=== PATIENT | male | born 1960 | race African-American/Black ===

== ENCOUNTER 2017-10-19 14:05 | Day surgery (SDC) | payer MEDICARE ==
[2017-10-19] MEDS ORDERED: DEXAMETHASONE IVP SCH (14:30)
[2017-10-19] MEDS ORDERED: SODIUM CHLORIDE 0.9% IVP SCH (14:30)
[2017-10-19] MEDS ORDERED: ONDANSETRON IVP SCH (14:30)
[2017-10-19] MEDS ORDERED: DEXTROSE 5% IV SCH ×2 (14:45)
[2017-10-19] MEDS ORDERED: WATER IVPB SCH ×2 (14:45)
[2017-10-19] MEDS ORDERED: CARFILZOMIB IV SCH ×2 (14:45)
[2017-10-19] MEDS ORDERED: WATER IV SCH ×2 (14:45)
[2017-10-19] MEDS ORDERED: CARFILZOMIB IVPB SCH ×2 (14:45)
[2017-10-19] MEDS ORDERED: Admixture Fee 1 EACH in Dextrose 5% in Water 10 ML FS SCH ×2 (14:45)
[2017-10-19] MEDS ORDERED: DEXTROSE 5% IVPB SCH ×2 (14:45)
[2017-10-19 15:28] VITALS: BP 164/84; TEMP 98.2
== END 2017-10-19 16:17 | disposition home or self-care (01) ==
LOC: ONC/OP 14:05
PROVIDERS: ATTEND Internal Medicine Hematology & Oncology
DX: Z51.11 Encounter for antineoplastic chemotherapy (principal); C90.01 Multiple myeloma in remission; I10 Essential (primary) hypertension; E11.42 Type 2 diabetes mellitus with diabetic polyneuropathy; Z88.2 Allergy status to sulfonamides; Z79.899 Other long term (current) drug therapy; Z87.891 Personal history of nicotine dependence
CPT/HCPCS: 96367; 96413; J1100; J2405; J7050; J7070; J9047

== ENCOUNTER 2017-10-20 13:54 | Day surgery (SDC) | payer MEDICARE ==
[2017-10-20] MEDS ORDERED: Admixture Fee 1 EACH in Dextrose 5% in Water 10 ML FS SCH ×2 (14:30)
[2017-10-20] MEDS ORDERED: WATER IV SCH ×2 (14:30)
[2017-10-20] MEDS ORDERED: DEXTROSE 5% IV SCH ×2 (14:30)
[2017-10-20] MEDS ORDERED: CARFILZOMIB IV SCH ×2 (14:30)
[2017-10-20] MEDS ORDERED: Ondansetron 2MG/ML MDV 10 MG in Sodium Chloride 0.9% 50 ML IVP SCH (14:30)
[2017-10-20 16:03] VITALS: BP 161/77; TEMP 98.3
== END 2017-10-20 16:08 | disposition home or self-care (01) ==
LOC: ONC/OP 13:54
PROVIDERS: ATTEND Internal Medicine Hematology & Oncology
DX: Z51.11 Encounter for antineoplastic chemotherapy (principal); C90.01 Multiple myeloma in remission; Z88.2 Allergy status to sulfonamides
CPT/HCPCS: 96367; 96413; J2405; J7050; J7070; J9047

== ENCOUNTER 2017-10-26 13:08 | Day surgery (SDC) | payer MEDICARE ==
[2017-10-26 13:44] VITALS: BP 173/77; TEMP 98.1
[2017-10-26 14:00] LABS: #Lymphocytes 1.9 thou/uL (1.20-3.40); #Monocytes 0.4 thou/uL (0.11-0.59); #Neutrophils 2.6 thou/uL (1.40-6.50); %Basophils 0.3 % (0.0-1.0); %Eosinophils 0.9 % (0.0-10.0); %Lymphocytes 38.6 % (21.0-51.0); %Monocytes 7.2 % (0.0-10.0); Hemoglobin 10.8 g/dL (14.0-18.0); Mean Corpuscular HGB CONC 32.5 g/dL (32.0-36.0); Mean Corpuscular Hemoglobin 30.7 pg (27.0-31.0); Mean Corpuscular Volume 94.4 fl (80.0-94.0); Mean Platelet Volume 10.8 fL (7.4-10.4); Platelet Count 124 thou/uL (130-400); RBC Distribution Width 17.9 % (11.5-14.5); Red Blood Cell (RBC) Count 3.53 mill/uL (4.70-6.10); White Blood Cell (WBC) Count 4.9 thou/uL (4.8-10.8)
[2017-10-26] MEDS ORDERED: WATER IVP SCH ×3 (14:00)
[2017-10-26] MEDS ORDERED: Ondansetron 2MG/ML MDV 10 MG in Sodium Chloride 0.9% 50 ML IVP SCH (14:00)
[2017-10-26] MEDS ORDERED: DEXTROSE 5% IVP SCH ×3 (14:00)
[2017-10-26] MEDS ORDERED: ONDANSETRON IVP SCH ×4 (14:00)
[2017-10-26] MEDS ORDERED: SODIUM CHLORIDE 0.9% IVP SCH (14:00)
[2017-10-26] MEDS ORDERED: DEXAMETHASONE IVP SCH ×4 (14:00)
[2017-10-26] MEDS ORDERED: WATER IV SCH ×2 (14:30)
[2017-10-26] MEDS ORDERED: CARFILZOMIB IV SCH ×2 (14:30)
[2017-10-26] MEDS ORDERED: DEXTROSE 5% IV SCH ×2 (14:30)
[2017-10-26] MEDS ORDERED: Admixture Fee 1 EACH in Dextrose 5% in Water 10 ML FS SCH ×2 (14:30)
== END 2017-10-26 15:59 | disposition home or self-care (01) ==
LOC: ONC/OP 13:08
PROVIDERS: ATTEND Internal Medicine Hematology & Oncology
DX: Z51.11 Encounter for antineoplastic chemotherapy (principal); C90.01 Multiple myeloma in remission; Z88.2 Allergy status to sulfonamides
CPT/HCPCS: 85025; 96367; 96413; J1100; J2405; J7050; J7070; J9047

== ENCOUNTER 2017-10-27 10:10 | Day surgery (SDC) | payer MEDICARE ==
[2017-10-27] MEDS ORDERED: ADMIXTURE FEE IV SCH ×6 (10:30→10:45)
[2017-10-27] MEDS ORDERED: DEXTROSE IV SCH ×6 (10:30→10:45)
[2017-10-27] MEDS ORDERED: Ondansetron HCl/PF 4 MG/2 ML Vial IVP SCH (10:30)
[2017-10-27] MEDS ORDERED: WATER IV SCH ×6 (10:30→10:45)
[2017-10-27] MEDS ORDERED: CARFILZOMIB IV SCH ×6 (10:30→10:45)
[2017-10-27] MEDS ORDERED: Sodium Chloride 0.9% 30 ML ONE (10:31)
[2017-10-27 10:37] VITALS: BP 175/84; TEMP 98.3
[2017-10-27] MEDS ORDERED: Admixture Fee 1 EACH in Dextrose 5% in Water 10 ML IV SCH ×2 (12:15)
== END 2017-10-27 12:20 | disposition home or self-care (01) ==
LOC: ONC/OP 10:10
PROVIDERS: ATTEND Internal Medicine Hematology & Oncology
DX: Z51.11 Encounter for antineoplastic chemotherapy (principal); C90.01 Multiple myeloma in remission; Z88.2 Allergy status to sulfonamides
CPT/HCPCS: 96375; 96409; A4216; J2405; J7070; J9047

== ENCOUNTER 2017-11-02 10:31 | Day surgery (SDC) | payer MEDICARE ==
[2017-11-02 10:55] VITALS: BP 140/79; TEMP 99.3
[2017-11-02] MEDS ORDERED: Dexamethasone 40 MG in Dextrose 5% in Water 50 ML IVPB SCH (11:00)
[2017-11-02] MEDS ORDERED: Admixture Fee 1 EACH in Dextrose 5% in Water 10 ML IV SCH (11:00)
[2017-11-02] MEDS ORDERED: Ondansetron HCl/PF 10 MG in Sodium Chloride 0.9% 50 ML IVPB SCH (11:00)
[2017-11-02] MEDS ORDERED: WATER IV SCH ×2 (11:00)
[2017-11-02] MEDS ORDERED: CARFILZOMIB IV SCH ×2 (11:00)
[2017-11-02] MEDS ORDERED: DEXTROSE 5% IV SCH ×2 (11:00)
[2017-11-02] MEDS ORDERED: Sodium Chloride 0.9% 20 ML ONE (11:06)
== END 2017-11-02 14:59 | disposition home or self-care (01) ==
LOC: ONC/OP 10:31
PROVIDERS: ATTEND Internal Medicine Hematology & Oncology
DX: Z51.11 Encounter for antineoplastic chemotherapy (principal); C90.01 Multiple myeloma in remission; I10 Essential (primary) hypertension; E11.42 Type 2 diabetes mellitus with diabetic polyneuropathy; Z94.84 Stem cells transplant status; Z88.2 Allergy status to sulfonamides; Z87.891 Personal history of nicotine dependence; Z79.899 Other long term (current) drug therapy
CPT/HCPCS: 96375; 96409; A4216; J1100; J2405; J7050; J7070; J9047

== ENCOUNTER 2017-11-03 10:37 | Day surgery (SDC) | payer MEDICARE ==
[2017-11-03] MEDS ORDERED: DEXTROSE 5% IV SCH ×2 (11:00)
[2017-11-03] MEDS ORDERED: Ondansetron HCl/PF 10 MG in Sodium Chloride 0.9% 50 ML IVPB SCH (11:00)
[2017-11-03] MEDS ORDERED: Admixture Fee 1 EACH in Dextrose 5% in Water 10 ML IV SCH ×2 (11:00)
[2017-11-03] MEDS ORDERED: CARFILZOMIB IV SCH ×2 (11:00)
[2017-11-03] MEDS ORDERED: WATER IV SCH ×2 (11:00)
[2017-11-03 11:20] VITALS: BP 118/56; TEMP 98.4
[2017-11-03] MEDS ORDERED: Sodium Chloride 0.9% 20 ML ONE (12:27)
== END 2017-11-03 12:24 | disposition home or self-care (01) ==
LOC: ONC/OP 10:37
PROVIDERS: ATTEND Internal Medicine Hematology & Oncology
DX: Z51.11 Encounter for antineoplastic chemotherapy (principal); C90.01 Multiple myeloma in remission; Z88.2 Allergy status to sulfonamides
CPT/HCPCS: 96367; 96409; A4216; J2405; J7050; J7070; J9047

== ENCOUNTER 2017-11-23 11:34 | Day surgery (SDC) | payer MEDICARE ==
[2017-11-23] MEDS ORDERED: Sodium Chloride 0.9% 20 ML ONE (11:41)
[2017-11-23] MEDS ORDERED: DEXTROSE 5% IVPB SCH ×3 (11:45)
[2017-11-23] MEDS ORDERED: ONDANSETRON IVPB SCH ×3 (11:45)
[2017-11-23] MEDS ORDERED: DEXAMETHASONE IVPB SCH ×3 (11:45)
[2017-11-23] MEDS ORDERED: DEXTROSE 5% IV SCH ×4 (11:45→12:00)
[2017-11-23] MEDS ORDERED: WATER IVPB SCH ×3 (11:45)
[2017-11-23] MEDS ORDERED: WATER IV SCH ×4 (11:45→12:00)
[2017-11-23] MEDS ORDERED: CARFILZOMIB IV SCH ×4 (11:45→12:00)
[2017-11-23 12:07] VITALS: BP 176/73; TEMP 98.2
[2017-11-23] MEDS ORDERED: Admixture Fee 1 EACH in Dextrose 5% in Water 10 ML FS SCH ×2 (12:15)
== END 2017-11-23 14:07 | disposition home or self-care (01) ==
LOC: ONC/OP 11:34
PROVIDERS: ATTEND Internal Medicine Hematology & Oncology
DX: Z51.11 Encounter for antineoplastic chemotherapy (principal); C90.01 Multiple myeloma in remission; I10 Essential (primary) hypertension; E11.42 Type 2 diabetes mellitus with diabetic polyneuropathy; Z87.891 Personal history of nicotine dependence; Z79.899 Other long term (current) drug therapy; Z88.2 Allergy status to sulfonamides
CPT/HCPCS: 36415; 80053; 82248; 83615; 84100; 84550; 96367; 96409; A4216; J1100; J2405; J7070; J9047

== ENCOUNTER 2017-11-24 10:37 | Day surgery (SDC) | payer MEDICARE ==
[2017-11-24] MEDS ORDERED: WATER IV SCH ×2 (11:00)
[2017-11-24] MEDS ORDERED: Sodium Chloride 0.9% 30 ML ONE (11:00)
[2017-11-24] MEDS ORDERED: Ondansetron 2MG/ML MDV 10 MG in Sodium Chloride 0.9% 50 ML IVPB SCH (11:00)
[2017-11-24] MEDS ORDERED: DEXTROSE 5% IV SCH ×2 (11:00)
[2017-11-24] MEDS ORDERED: CARFILZOMIB IV SCH ×2 (11:00)
[2017-11-24 11:06] VITALS: BP 155/75; TEMP 98.6
[2017-11-24] MEDS ORDERED: Admixture Fee 1 EACH in Dextrose 5% in Water 10 ML FS SCH (11:30)
== END 2017-11-24 12:41 | disposition home or self-care (01) ==
LOC: ONC/OP 10:37
PROVIDERS: ATTEND Internal Medicine Hematology & Oncology
DX: Z51.11 Encounter for antineoplastic chemotherapy (principal); C90.01 Multiple myeloma in remission
CPT/HCPCS: 96375; 96409; A4216; J2405; J7050; J7070; J9047

== ENCOUNTER 2017-11-30 11:35 | Day surgery (SDC) | payer MEDICARE ==
[2017-11-30] MEDS ORDERED: Sodium Chloride 0.9% 30 ML ONE (11:44)
[2017-11-30] MEDS ORDERED: Dexamethasone 40 MG in Dextrose 5% in Water 50 ML IVPB SCH (11:45)
[2017-11-30] MEDS ORDERED: WATER IVPB SCH ×3 (12:00)
[2017-11-30] MEDS ORDERED: DEXAMETHASONE IVPB SCH (12:00)
[2017-11-30] MEDS ORDERED: CARFILZOMIB IVPB SCH (12:00)
[2017-11-30] MEDS ORDERED: ONDANSETRON HCL IVPB SCH (12:00)
[2017-11-30] MEDS ORDERED: DEXTROSE 5% IVPB SCH ×3 (12:00)
[2017-11-30] MEDS ORDERED: ONDANSETRON IVPB SCH (12:00)
[2017-11-30] MEDS ORDERED: Admixture Fee 1 EACH in Dextrose 5% in Water 10 ML IV SCH (12:00)
[2017-11-30 12:02] VITALS: BP 176/80; TEMP 97.9
== END 2017-11-30 13:13 | disposition home or self-care (01) ==
LOC: ONC/OP 11:35
PROVIDERS: ATTEND Internal Medicine Hematology & Oncology
DX: Z51.11 Encounter for antineoplastic chemotherapy (principal); C90.01 Multiple myeloma in remission; I10 Essential (primary) hypertension; E11.42 Type 2 diabetes mellitus with diabetic polyneuropathy; Z79.899 Other long term (current) drug therapy; Z88.2 Allergy status to sulfonamides; Z94.84 Stem cells transplant status; Z95.828 Presence of other vascular implants and grafts; Z87.891 Personal history of nicotine dependence
CPT/HCPCS: 96375; 96409; A4216; J1100; J2405; J7070; J9047

== ENCOUNTER 2017-12-01 10:03 | Day surgery (SDC) | payer MEDICARE ==
[2017-12-01] MEDS ORDERED: Sodium Chloride 0.9% 30 ML ONE (10:08)
[2017-12-01] MEDS ORDERED: DEXTROSE IV SCH ×6 (10:15→10:30)
[2017-12-01] MEDS ORDERED: ADMIXTURE FEE IV SCH ×6 (10:15→10:30)
[2017-12-01] MEDS ORDERED: Ondansetron HCl/PF 4 MG/2 ML Vial IVP SCH (10:15)
[2017-12-01] MEDS ORDERED: WATER IV SCH ×6 (10:15→10:30)
[2017-12-01] MEDS ORDERED: CARFILZOMIB IV SCH ×6 (10:15→10:30)
[2017-12-01] MEDS ORDERED: Admixture Fee 1 EACH in Dextrose 5% in Water 10 ML IV SCH ×2 (10:30)
[2017-12-01 10:49] VITALS: BP 179/82; TEMP 98.7
== END 2017-12-01 11:42 | disposition home or self-care (01) ==
LOC: ONC/OP 10:03
PROVIDERS: ATTEND Internal Medicine Hematology & Oncology
DX: Z51.11 Encounter for antineoplastic chemotherapy (principal); C90.00 Multiple myeloma not having achieved remission; Z88.2 Allergy status to sulfonamides
CPT/HCPCS: 96375; 96409; A4216; J2405; J7070; J9047

== ENCOUNTER 2017-12-07 11:16 | Day surgery (SDC) | payer MEDICARE ==
[2017-12-07] MEDS ORDERED: CARFILZOMIB IV SCH ×2 (11:30→11:45)
[2017-12-07] MEDS ORDERED: DEXTROSE 5% IV SCH ×2 (11:30→11:45)
[2017-12-07] MEDS ORDERED: WATER IV SCH ×2 (11:30→11:45)
[2017-12-07] MEDS ORDERED: Dexamethasone 40 MG in Dextrose 5% in Water 50 ML IVPB SCH (11:30)
[2017-12-07] MEDS ORDERED: Ondansetron 2MG/ML MDV 10 MG in Sodium Chloride 0.9% 50 ML IVPB SCH (11:30)
[2017-12-07] MEDS ORDERED: DEXAMETHASONE IVPB SCH (11:45)
[2017-12-07] MEDS ORDERED: ONDANSETRON IVPB SCH (11:45)
[2017-12-07] MEDS ORDERED: Admixture Fee 1 EACH in Dextrose 5% in Water 10 ML IV SCH (11:45)
[2017-12-07] MEDS ORDERED: WATER IVPB SCH (11:45)
[2017-12-07] MEDS ORDERED: DEXTROSE 5% IVPB SCH (11:45)
[2017-12-07] MEDS ORDERED: Dexamethasone 40 MG, Ondansetron 2MG/ML MDV 10 MG in Sodium Chloride 0.9% 50 ML IVPB SCH (12:00)
[2017-12-07] MEDS ORDERED: Sodium Chloride 0.9% 40 ML ONE (12:30)
== END 2017-12-07 13:03 | disposition home or self-care (01) ==
LOC: ONC/OP 11:16
PROVIDERS: ATTEND Internal Medicine Hematology & Oncology
DX: Z51.11 Encounter for antineoplastic chemotherapy (principal); C90.01 Multiple myeloma in remission; E11.42 Type 2 diabetes mellitus with diabetic polyneuropathy; I10 Essential (primary) hypertension; Z87.891 Personal history of nicotine dependence; Z79.899 Other long term (current) drug therapy; Z88.2 Allergy status to sulfonamides; Z94.84 Stem cells transplant status; C91.Z0 Other lymphoid leukemia not having achieved remission
CPT/HCPCS: 36415; 84165; 96375; 96413; A4216; J1100; J2405; J7050; J7070; J9047

== ENCOUNTER 2017-12-08 10:47 | Day surgery (SDC) | payer MEDICARE ==
[2017-12-08] MEDS ORDERED: Sodium Chloride 0.9% 30 ML ONE (10:55)
[2017-12-08] MEDS ORDERED: Ondansetron HCl/PF 4 MG/2 ML Vial IVP SCH (11:00)
[2017-12-08] MEDS ORDERED: DEXTROSE IV SCH ×2 (11:15→11:30)
[2017-12-08] MEDS ORDERED: ADMIXTURE FEE IV SCH ×2 (11:15→11:30)
[2017-12-08] MEDS ORDERED: CARFILZOMIB IV SCH ×2 (11:15→11:30)
[2017-12-08] MEDS ORDERED: WATER IV SCH ×2 (11:15→11:30)
[2017-12-08] MEDS ORDERED: Admixture Fee 1 EACH in Dextrose 5% in Water 10 ML IV SCH (11:30)
[2017-12-08] MEDS ORDERED: Ondansetron 2MG/ML MDV 10 MG in Sodium Chloride 0.9% 50 ML IVPB SCH (13:00)
[2017-12-08 13:03] VITALS: BP 177/79; TEMP 97.9
== END 2017-12-08 17:02 | disposition home or self-care (01) ==
LOC: ONC/OP 10:47
PROVIDERS: ATTEND Internal Medicine Hematology & Oncology
DX: Z51.11 Encounter for antineoplastic chemotherapy (principal); C90.01 Multiple myeloma in remission; Z88.2 Allergy status to sulfonamides
CPT/HCPCS: 96375; 96409; A4216; J2405; J7050; J7070; J9047

== ENCOUNTER 2017-12-21 10:48 | Day surgery (SDC) | payer MEDICARE ==
[2017-12-21] MEDS ORDERED: Dexamethasone 40 MG, Ondansetron 2MG/ML MDV 10 MG in Sodium Chloride 0.9% 50 ML IVPB SCH (11:15)
[2017-12-21] MEDS ORDERED: CARFILZOMIB IV SCH ×2 (11:15→11:30)
[2017-12-21] MEDS ORDERED: WATER IV SCH ×2 (11:15→11:30)
[2017-12-21] MEDS ORDERED: DEXTROSE 5% IV SCH ×2 (11:15→11:30)
[2017-12-21] MEDS ORDERED: Admixture Fee 1 EACH in Dextrose 5% in Water 10 ML IV SCH (11:15)
[2017-12-21 15:51] VITALS: BP 141/66; TEMP 99.3
== END 2017-12-21 16:13 | disposition home or self-care (01) ==
LOC: ONC/OP 10:48
PROVIDERS: ATTEND Internal Medicine Hematology & Oncology
DX: Z51.11 Encounter for antineoplastic chemotherapy (principal); C90.01 Multiple myeloma in remission; I10 Essential (primary) hypertension; E11.42 Type 2 diabetes mellitus with diabetic polyneuropathy; Z87.891 Personal history of nicotine dependence; Z79.899 Other long term (current) drug therapy; Z88.2 Allergy status to sulfonamides
CPT/HCPCS: 36415; 80053; 82248; 83615; 84100; 84550; 96367; 96409; J1100; J2405; J7050; J7070; J9047

== ENCOUNTER 2017-12-22 09:38 | Day surgery (SDC) | payer MEDICARE ==
[2017-12-22] MEDS ORDERED: DEXTROSE IV SCH ×2 (10:00→10:15)
[2017-12-22] MEDS ORDERED: Ondansetron HCl/PF 4 MG/2 ML Vial IVP SCH (10:00)
[2017-12-22] MEDS ORDERED: WATER IV SCH ×2 (10:00→10:15)
[2017-12-22] MEDS ORDERED: ADMIXTURE FEE IV SCH ×2 (10:00→10:15)
[2017-12-22] MEDS ORDERED: CARFILZOMIB IV SCH ×2 (10:00→10:15)
[2017-12-22 10:06] VITALS: BP 149/70; TEMP 98
[2017-12-22] MEDS ORDERED: Admixture Fee 1 EACH in Dextrose 5% in Water 10 ML IV SCH (11:00)
== END 2017-12-22 12:06 | disposition home or self-care (01) ==
LOC: ONC/OP 09:38
PROVIDERS: ATTEND Internal Medicine Hematology & Oncology
DX: Z51.11 Encounter for antineoplastic chemotherapy (principal); C90.01 Multiple myeloma in remission; Z88.2 Allergy status to sulfonamides
CPT/HCPCS: 96375; 96409; J2405; J7070; J9047

== ENCOUNTER 2018-01-04 10:28 | Day surgery (SDC) | payer MEDICARE ==
[2018-01-04] MEDS ORDERED: [UNRECOGNIZED DRUG - OTHER] IVPB SCH (11:15)
[2018-01-04] MEDS ORDERED: ADMIXTURE FEE IVPB SCH (11:15)
[2018-01-04] MEDS ORDERED: ADMIXTURE FEE IV SCH ×2 (11:15)
[2018-01-04] MEDS ORDERED: WATER IV SCH ×2 (11:15)
[2018-01-04] MEDS ORDERED: Admixture Fee 1 EACH in Dextrose 5% in Water 10 ML IV SCH (11:15)
[2018-01-04] MEDS ORDERED: DEXTROSE IV SCH ×2 (11:15)
[2018-01-04] MEDS ORDERED: DEXAMETHASONE IVPB SCH (11:15)
[2018-01-04] MEDS ORDERED: CARFILZOMIB IV SCH ×2 (11:15)
[2018-01-04] MEDS ORDERED: ONDANSETRON IVPB SCH (11:15)
[2018-01-04 11:32] VITALS: BP 140/74; TEMP 98.1
== END 2018-01-04 12:39 | disposition home or self-care (01) ==
LOC: ONC/OP 10:28
PROVIDERS: ATTEND Internal Medicine Hematology & Oncology
DX: Z51.11 Encounter for antineoplastic chemotherapy (principal); C90.01 Multiple myeloma in remission; I10 Essential (primary) hypertension; E11.42 Type 2 diabetes mellitus with diabetic polyneuropathy; Z87.891 Personal history of nicotine dependence; Z79.899 Other long term (current) drug therapy; Z88.2 Allergy status to sulfonamides
CPT/HCPCS: 96375; 96409; J1100; J2405; J7070; J9047

== ENCOUNTER 2018-01-05 10:49 | Day surgery (SDC) | payer MEDICARE ==
[2018-01-05 11:26] VITALS: BP 132/66; TEMP 97.8
[2018-01-05] MEDS ORDERED: Admixture Fee 1 EACH in Dextrose 5% in Water 10 ML IV SCH (11:30)
[2018-01-05] MEDS ORDERED: Sodium Chloride 0.9% 20 ML ONE (11:44)
[2018-01-05] MEDS ORDERED: Ondansetron HCl/PF 10 MG in Sodium Chloride 0.9% 50 ML IVPB SCH (11:45)
[2018-01-05] MEDS ORDERED: WATER IV SCH (12:00)
[2018-01-05] MEDS ORDERED: CARFILZOMIB IV SCH (12:00)
[2018-01-05] MEDS ORDERED: DEXTROSE IV SCH (12:00)
[2018-01-05] MEDS ORDERED: ADMIXTURE FEE IV SCH (12:00)
== END 2018-01-05 13:02 | disposition home or self-care (01) ==
LOC: ONC/OP 10:49
PROVIDERS: ATTEND Internal Medicine Hematology & Oncology
DX: Z51.11 Encounter for antineoplastic chemotherapy (principal); C90.01 Multiple myeloma in remission; Z88.2 Allergy status to sulfonamides
CPT/HCPCS: 96375; 96409; A4216; J2405; J7050; J7070; J9047

== ENCOUNTER 2018-01-11 10:53 | Day surgery (SDC) | payer MEDICARE ==
[2018-01-11] MEDS ORDERED: Sodium Chloride 0.9% 40 ML ONE (11:10)
[2018-01-11] MEDS ORDERED: CARFILZOMIB IV SCH ×2 (11:15)
[2018-01-11] MEDS ORDERED: DEXTROSE 5% IV SCH ×2 (11:15)
[2018-01-11] MEDS ORDERED: DEXAMETHASONE IVPB SCH (11:15)
[2018-01-11] MEDS ORDERED: Admixture Fee 1 EACH in Dextrose 5% in Water 10 ML IV SCH (11:15)
[2018-01-11] MEDS ORDERED: WATER IVPB SCH (11:15)
[2018-01-11] MEDS ORDERED: WATER IV SCH ×2 (11:15)
[2018-01-11] MEDS ORDERED: ONDANSETRON HCL IVPB SCH (11:15)
[2018-01-11] MEDS ORDERED: DEXTROSE 5% IVPB SCH (11:15)
[2018-01-11 11:26] VITALS: BP 162/74; TEMP 98.2
== END 2018-01-11 13:56 | disposition home or self-care (01) ==
LOC: ONC/OP 10:53
PROVIDERS: ATTEND Internal Medicine Hematology & Oncology
DX: Z51.11 Encounter for antineoplastic chemotherapy (principal); C90.01 Multiple myeloma in remission; I10 Essential (primary) hypertension; E11.42 Type 2 diabetes mellitus with diabetic polyneuropathy; Z88.2 Allergy status to sulfonamides; Z87.891 Personal history of nicotine dependence
CPT/HCPCS: 96375; 96409; A4216; J1100; J2405; J7070; J9047

== ENCOUNTER 2018-01-12 08:34 | Day surgery (SDC) | payer MEDICARE ==
[2018-01-12] MEDS ORDERED: DEXTROSE 5% IV SCH ×3 (08:45→09:00)
[2018-01-12] MEDS ORDERED: WATER IV SCH ×3 (08:45→09:00)
[2018-01-12] MEDS ORDERED: CARFILZOMIB IV SCH ×2 (08:45→09:00)
[2018-01-12] MEDS ORDERED: Ondansetron HCl/PF 4 MG/2 ML Vial IVP SCH (08:45)
[2018-01-12 08:54] VITALS: BP 181/88; TEMP 98.3
[2018-01-12] MEDS ORDERED: ONDANSETRON IV SCH (09:00)
[2018-01-12] MEDS ORDERED: Admixture Fee 1 EACH in Dextrose 5% in Water 10 ML IV SCH (09:00)
[2018-01-12] MEDS ORDERED: Sodium Chloride 0.9% 30 ML ONE (09:14)
== END 2018-01-12 09:58 | disposition home or self-care (01) ==
LOC: ONC/OP 08:34
PROVIDERS: ATTEND Internal Medicine Hematology & Oncology
DX: Z51.11 Encounter for antineoplastic chemotherapy (principal); C90.01 Multiple myeloma in remission; Z88.2 Allergy status to sulfonamides
CPT/HCPCS: 96375; 96409; A4216; J2405; J7070; J9047

== ENCOUNTER 2018-01-25 10:16 | Day surgery (SDC) | payer MEDICARE ==
[2018-01-25] MEDS ORDERED: CARFILZOMIB IV SCH ×2 (10:30)
[2018-01-25] MEDS ORDERED: Dexamethasone 40 MG, Ondansetron 2MG/ML MDV 10 MG in Sodium Chloride 0.9% 50 ML IVPB SCH (10:30)
[2018-01-25] MEDS ORDERED: DEXTROSE 5% IV SCH ×2 (10:30)
[2018-01-25] MEDS ORDERED: WATER IV SCH ×2 (10:30)
[2018-01-25] MEDS ORDERED: Sodium Chloride 0.9% 30 ML ONE (10:37)
[2018-01-25] MEDS ORDERED: Admixture Fee 1 EACH in Dextrose 5% in Water 10 ML IV SCH (11:00)
[2018-01-25 11:08] VITALS: BP 142/65; TEMP 98.4
== END 2018-01-25 14:09 | disposition home or self-care (01) ==
LOC: ONC/OP 10:16
PROVIDERS: ATTEND Internal Medicine Hematology & Oncology
DX: Z51.11 Encounter for antineoplastic chemotherapy (principal); C90.01 Multiple myeloma in remission; I10 Essential (primary) hypertension; E11.42 Type 2 diabetes mellitus with diabetic polyneuropathy; Z87.891 Personal history of nicotine dependence; Z88.2 Allergy status to sulfonamides; Z79.899 Other long term (current) drug therapy
CPT/HCPCS: 36415; 80053; 82248; 83615; 84100; 84550; 96375; 96409; A4216; J1100; J2405; J7050; J7070; J9047

== ENCOUNTER 2018-01-26 11:44 | Day surgery (SDC) | payer MEDICARE ==
[2018-01-26] MEDS ORDERED: Admixture Fee 1 EACH in Dextrose 5% in Water 10 ML IV SCH (12:00)
[2018-01-26] MEDS ORDERED: WATER IV SCH ×2 (12:00)
[2018-01-26] MEDS ORDERED: CARFILZOMIB IV SCH ×2 (12:00)
[2018-01-26] MEDS ORDERED: DEXTROSE 5% IV SCH ×2 (12:00)
[2018-01-26 12:25] VITALS: BP 185/85; TEMP 98
[2018-01-26] MEDS ORDERED: Ondansetron 2MG/ML MDV 10 MG in Sodium Chloride 0.9% 50 ML IVPB SCH (13:15)
== END 2018-01-26 13:52 | disposition home or self-care (01) ==
LOC: ONC/OP 11:44
PROVIDERS: ATTEND Internal Medicine Hematology & Oncology
DX: Z51.11 Encounter for antineoplastic chemotherapy (principal); C90.01 Multiple myeloma in remission; Z88.2 Allergy status to sulfonamides
CPT/HCPCS: 84165; 96375; 96409; J2405; J7050; J7070; J9047

== ENCOUNTER 2018-02-01 10:47 | Day surgery (SDC) | payer MEDICARE ==
[2018-02-01 10:57] VITALS: BP 151/70
[2018-02-01] MEDS ORDERED: Dexamethasone 40 MG, Ondansetron 2MG/ML MDV 10 MG in Sodium Chloride 0.9% 50 ML IVPB SCH (11:00)
[2018-02-01] MEDS ORDERED: WATER IV SCH ×2 (11:00→11:15)
[2018-02-01] MEDS ORDERED: DEXTROSE 5% IV SCH ×2 (11:00→11:15)
[2018-02-01] MEDS ORDERED: CARFILZOMIB IV SCH ×2 (11:00→11:15)
[2018-02-01] MEDS ORDERED: Admixture Fee 1 EACH in Dextrose 5% in Water 10 ML IV SCH (11:30)
== END 2018-02-01 13:03 | disposition home or self-care (01) ==
LOC: ONC/OP 10:47
PROVIDERS: ATTEND Internal Medicine Hematology & Oncology
DX: Z51.11 Encounter for antineoplastic chemotherapy (principal); C90.01 Multiple myeloma in remission; I10 Essential (primary) hypertension; E11.42 Type 2 diabetes mellitus with diabetic polyneuropathy; Z88.2 Allergy status to sulfonamides; Z87.891 Personal history of nicotine dependence; Z79.899 Other long term (current) drug therapy
CPT/HCPCS: 96375; 96409; J1100; J2405; J7050; J7070; J9047

== ENCOUNTER 2018-02-02 10:39 | Day surgery (SDC) | payer MEDICARE ==
[2018-02-02 10:58] VITALS: BP 178/79; TEMP 98
[2018-02-02] MEDS ORDERED: Sodium Chloride 0.9% 20 ML ONE (11:00)
[2018-02-02] MEDS ORDERED: CARFILZOMIB IV SCH ×2 (11:15)
[2018-02-02] MEDS ORDERED: DEXTROSE 5% IV SCH ×2 (11:15)
[2018-02-02] MEDS ORDERED: WATER IV SCH ×2 (11:15)
[2018-02-02] MEDS ORDERED: Ondansetron HCl/PF 4 MG/2 ML Vial IVP SCH (11:15)
[2018-02-02] MEDS: Admixture Fee 1 EACH in Dextrose 5% in Water 10 ML IV SCH ×2 (11:30→11:31)
== END 2018-02-02 16:39 | disposition home or self-care (01) ==
LOC: ONC/OP 10:39
PROVIDERS: ATTEND Internal Medicine Hematology & Oncology
DX: Z51.11 Encounter for antineoplastic chemotherapy (principal); C90.01 Multiple myeloma in remission; Z88.2 Allergy status to sulfonamides
CPT/HCPCS: 96375; 96409; A4216; J2405; J7070; J9047

== ENCOUNTER 2018-02-23 11:57 | Day surgery (SDC) | payer MEDICARE ==
[2018-02-23] MEDS ORDERED: Sodium Chloride 0.9% 20 ML ONE (12:09)
[2018-02-23] MEDS ORDERED: CARFILZOMIB IV SCH (12:30)
[2018-02-23] MEDS ORDERED: WATER IV SCH (12:30)
[2018-02-23] MEDS ORDERED: DEXTROSE 5% IV SCH (12:30)
[2018-02-23 12:43] VITALS: BP 197/79; TEMP 99.8
[2018-02-23] MEDS ORDERED: WATER IVPB SCH (13:30)
[2018-02-23] MEDS ORDERED: DEXAMETHASONE IVPB SCH (13:30)
[2018-02-23] MEDS ORDERED: DEXTROSE 5% IVPB SCH (13:30)
[2018-02-23] MEDS ORDERED: ONDANSETRON IVPB SCH (13:30)
== END 2018-02-23 14:55 | disposition home or self-care (01) ==
LOC: ONC/OP 11:57
PROVIDERS: ATTEND Internal Medicine Hematology & Oncology
DX: Z51.11 Encounter for antineoplastic chemotherapy (principal); C90.01 Multiple myeloma in remission; E11.42 Type 2 diabetes mellitus with diabetic polyneuropathy; I10 Essential (primary) hypertension; Z98.890 Other specified postprocedural states; Z87.891 Personal history of nicotine dependence; Z88.2 Allergy status to sulfonamides; Z79.899 Other long term (current) drug therapy
CPT/HCPCS: 96375; 96409; A4216; J1100; J2405; J7070; J9047

== ENCOUNTER 2018-02-24 10:16 | Day surgery (SDC) | payer MEDICARE ==
[2018-02-24] MEDS ORDERED: DEXTROSE 5% IV SCH (10:45)
[2018-02-24] MEDS ORDERED: WATER IV SCH (10:45)
[2018-02-24] MEDS ORDERED: Ondansetron 2MG/ML MDV 10 MG in Sodium Chloride 0.9% 50 ML IVPB SCH (10:45)
[2018-02-24] MEDS ORDERED: CARFILZOMIB IV SCH (10:45)
[2018-02-24] MEDS ORDERED: Admixture Fee 1 EACH in Dextrose 5% in Water 10 ML IV SCH (11:00)
[2018-02-24] MEDS ORDERED: Sodium Chloride 0.9% 30 ML ONE (11:01)
[2018-02-24 11:08] VITALS: BP 167/77; TEMP 98.4
== END 2018-02-24 12:52 | disposition home or self-care (01) ==
LOC: ONC/OP 10:16
PROVIDERS: ATTEND Internal Medicine Hematology & Oncology
DX: Z51.11 Encounter for antineoplastic chemotherapy (principal); C90.01 Multiple myeloma in remission; Z88.2 Allergy status to sulfonamides
CPT/HCPCS: 96367; 96409; A4216; J2405; J7050; J7070; J9047

== ENCOUNTER 2018-03-09 10:55 | Day surgery (SDC) | payer MEDICARE ==
[2018-03-09] MEDS ORDERED: Sodium Chloride 0.9% 30 ML ONE (11:04)
[2018-03-09] MEDS ORDERED: DEXTROSE 5% IVPB SCH ×2 (11:30)
[2018-03-09] MEDS ORDERED: WATER IVPB SCH ×2 (11:30)
[2018-03-09] MEDS ORDERED: CARFILZOMIB IVPB SCH ×2 (11:30)
[2018-03-09] MEDS ORDERED: Ondansetron 2MG/ML MDV 10 MG in Sodium Chloride 0.9% 50 ML IVP SCH (11:30)
[2018-03-09] MEDS ORDERED: Dexamethasone 40 MG in Sodium Chloride 0.9% 50 ML IVPB SCH (12:00)
[2018-03-09 18:44] VITALS: BP 170/77; TEMP 99
== END 2018-03-09 18:44 | disposition home or self-care (01) ==
LOC: ONC/OP 10:55
PROVIDERS: ATTEND Internal Medicine Hematology & Oncology
DX: Z51.11 Encounter for antineoplastic chemotherapy (principal); C90.01 Multiple myeloma in remission; I10 Essential (primary) hypertension; E11.42 Type 2 diabetes mellitus with diabetic polyneuropathy; Z88.2 Allergy status to sulfonamides; Z79.899 Other long term (current) drug therapy
CPT/HCPCS: 36415; 80053; 82248; 83615; 84100; 84550; 96367; 96375; 96409; A4216; J1100; J2405; J7050; J7070; J9047

== ENCOUNTER 2018-03-10 10:59 | Day surgery (SDC) | payer MEDICARE ==
[2018-03-10] MEDS ORDERED: WATER IV SCH (11:00)
[2018-03-10] MEDS ORDERED: DEXTROSE 5% IV SCH (11:00)
[2018-03-10] MEDS ORDERED: CARFILZOMIB IV SCH (11:00)
[2018-03-10] MEDS ORDERED: Ondansetron 2MG/ML MDV 10 MG in Sodium Chloride 0.9% 50 ML IVP SCH (11:00)
[2018-03-10] MEDS ORDERED: WATER IVPB SCH (11:15)
[2018-03-10] MEDS ORDERED: DEXTROSE 5% IVPB SCH (11:15)
[2018-03-10] MEDS ORDERED: CARFILZOMIB IVPB SCH (11:15)
== END 2018-03-10 17:21 | disposition home or self-care (01) ==
LOC: ONC/OP 10:59
PROVIDERS: ATTEND Internal Medicine Hematology & Oncology
DX: Z51.11 Encounter for antineoplastic chemotherapy (principal); C90.01 Multiple myeloma in remission; Z88.2 Allergy status to sulfonamides
CPT/HCPCS: 96367; 96409; J2405; J7050; J7070; J9047

== ENCOUNTER 2018-03-16 12:36 | Day surgery (SDC) | payer MEDICARE ==
[2018-03-16] MEDS ORDERED: Dexamethasone 40 MG in Dextrose 5% in Water 50 ML IVPB SCH (13:15)
[2018-03-16] MEDS ORDERED: Ondansetron 2MG/ML MDV 10 MG in Sodium Chloride 0.9% 50 ML IVP SCH (13:15)
[2018-03-16] MEDS ORDERED: DEXTROSE 5% IV SCH (13:30)
[2018-03-16] MEDS ORDERED: ONDANSETRON IVP SCH (13:30)
[2018-03-16] MEDS ORDERED: SODIUM CHLORIDE 0.9% IVP SCH (13:30)
[2018-03-16] MEDS ORDERED: CARFILZOMIB IV SCH (13:30)
[2018-03-16] MEDS ORDERED: WATER IV SCH (13:30)
[2018-03-16] MEDS ORDERED: DEXAMETHASONE IVP SCH (13:30)
[2018-03-16] MEDS ORDERED: SODIUM CHLORIDE 0.9% IVPB SCH (14:15)
[2018-03-16] MEDS ORDERED: ONDANSETRON IVPB SCH (14:15)
[2018-03-16] MEDS ORDERED: DEXAMETHASONE IVPB SCH (14:15)
[2018-03-16 19:21] VITALS: BP 184/84; TEMP 99
== END 2018-03-16 19:22 | disposition home or self-care (01) ==
LOC: ONC/OP 12:36
PROVIDERS: ATTEND Internal Medicine Hematology & Oncology
DX: Z51.11 Encounter for antineoplastic chemotherapy (principal); C90.01 Multiple myeloma in remission; E11.42 Type 2 diabetes mellitus with diabetic polyneuropathy; I10 Essential (primary) hypertension; Z88.2 Allergy status to sulfonamides; Z87.891 Personal history of nicotine dependence; Z79.899 Other long term (current) drug therapy
CPT/HCPCS: 96375; 96409; J1100; J2405; J7050; J7070; J9047

== ENCOUNTER 2018-03-17 10:29 | Day surgery (SDC) | payer MEDICARE ==
[2018-03-17] MEDS ORDERED: Sodium Chloride 0.9% 20 ML ONE (10:42)
[2018-03-17] MEDS ORDERED: Ondansetron 2MG/ML MDV 10 MG in Sodium Chloride 0.9% 50 ML IVP SCH (11:00)
[2018-03-17] MEDS ORDERED: CARFILZOMIB IV SCH ×2 (11:30)
[2018-03-17] MEDS ORDERED: DEXTROSE 5% IV SCH ×2 (11:30)
[2018-03-17] MEDS ORDERED: WATER IV SCH ×2 (11:30)
[2018-03-17 12:30] VITALS: BP 184/85; TEMP 98
== END 2018-03-17 12:15 | disposition home or self-care (01) ==
LOC: ONC/OP 10:29
PROVIDERS: ATTEND Internal Medicine Hematology & Oncology
DX: Z51.11 Encounter for antineoplastic chemotherapy (principal); C90.01 Multiple myeloma in remission; Z88.2 Allergy status to sulfonamides
CPT/HCPCS: 96375; 96409; A4216; J2405; J7050; J7070; J9047

== ENCOUNTER 2018-03-23 10:03 | Day surgery (SDC) | payer MEDICARE ==
[2018-03-23] MEDS ORDERED: DEXAMETHASONE IVPB SCH (10:15)
[2018-03-23] MEDS ORDERED: DEXTROSE 5% IV SCH ×2 (10:15→10:30)
[2018-03-23] MEDS ORDERED: WATER IV SCH ×2 (10:15→10:30)
[2018-03-23] MEDS ORDERED: WATER IVPB SCH (10:15)
[2018-03-23] MEDS ORDERED: CARFILZOMIB IV SCH ×2 (10:15→10:30)
[2018-03-23] MEDS ORDERED: DEXTROSE 5% IVPB SCH (10:15)
[2018-03-23] MEDS ORDERED: ONDANSETRON IVPB SCH (10:15)
[2018-03-23 10:51] VITALS: BP 175/83; TEMP 98.3
== END 2018-03-23 12:14 | disposition home or self-care (01) ==
LOC: ONC/OP 10:03
PROVIDERS: ATTEND Internal Medicine Hematology & Oncology
DX: Z51.11 Encounter for antineoplastic chemotherapy (principal); C90.01 Multiple myeloma in remission; E11.42 Type 2 diabetes mellitus with diabetic polyneuropathy; I10 Essential (primary) hypertension; Z88.2 Allergy status to sulfonamides; Z87.891 Personal history of nicotine dependence; Z79.899 Other long term (current) drug therapy
CPT/HCPCS: 36415; 80053; 82248; 83615; 84100; 84165; 84550; 96375; 96409; J1100; J2405; J7070; J9047

== ENCOUNTER 2018-04-06 10:54 | Day surgery (SDC) | payer MEDICARE ==
[2018-04-06] MEDS ORDERED: ONDANSETRON IVPB SCH (11:15)
[2018-04-06] MEDS ORDERED: Sodium Chloride 0.9% 30 ML ONE (11:15)
[2018-04-06] MEDS ORDERED: WATER IV SCH ×2 (11:15)
[2018-04-06] MEDS ORDERED: DEXTROSE 5% IVPB SCH (11:15)
[2018-04-06] MEDS ORDERED: DEXAMETHASONE IVPB SCH (11:15)
[2018-04-06] MEDS ORDERED: CARFILZOMIB IV SCH ×2 (11:15)
[2018-04-06] MEDS ORDERED: DEXTROSE 5% IV SCH ×2 (11:15)
[2018-04-06] MEDS ORDERED: WATER IVPB SCH (11:15)
[2018-04-06 13:25] VITALS: BP 141/64; TEMP 98.8
== END 2018-04-06 16:09 | disposition home or self-care (01) ==
LOC: ONC/OP 10:54
PROVIDERS: ATTEND Internal Medicine Hematology & Oncology
DX: Z51.11 Encounter for antineoplastic chemotherapy (principal); C90.01 Multiple myeloma in remission; I10 Essential (primary) hypertension; E11.40 Type 2 diabetes mellitus with diabetic neuropathy, unspecified; Z88.2 Allergy status to sulfonamides; Z87.891 Personal history of nicotine dependence; Z79.899 Other long term (current) drug therapy
CPT/HCPCS: 36415; 80053; 82248; 83615; 84100; 84550; 96375; 96409; A4216; J1100; J2405; J7070; J9047

== ENCOUNTER 2018-04-07 10:50 | Day surgery (SDC) | payer MEDICARE ==
[2018-04-07] MEDS ORDERED: CARFILZOMIB IV SCH ×2 (11:15)
[2018-04-07] MEDS ORDERED: WATER IV SCH ×2 (11:15)
[2018-04-07] MEDS ORDERED: Ondansetron HCl/PF 4 MG/2 ML Vial SLOW IVP SCH (11:15)
[2018-04-07] MEDS ORDERED: Ondansetron 2MG/ML MDV 10 MG in Sodium Chloride 0.9% 50 ML IVPB SCH (11:15)
[2018-04-07] MEDS ORDERED: DEXTROSE 5% IV SCH ×2 (11:15)
[2018-04-07] MEDS ORDERED: Sodium Chloride 0.9% 20 ML ONE (11:25)
[2018-04-07 12:22] VITALS: BP 140/68; TEMP 98
== END 2018-04-07 13:00 | disposition home or self-care (01) ==
LOC: ONC/OP 10:50
PROVIDERS: ATTEND Internal Medicine Hematology & Oncology
DX: Z51.11 Encounter for antineoplastic chemotherapy (principal); C90.01 Multiple myeloma in remission; Z88.2 Allergy status to sulfonamides
CPT/HCPCS: 96367; 96413; A4216; J2405; J7050; J7070; J9047